=== PATIENT | female | born 1975 | race Caucasian/White ===

== ENCOUNTER 2019-08-05 15:08 | Inpatient (IN) | payer OTHER ==
[2019-08-05] MEDS ORDERED: IBUPROFEN 600 MG TAB PO STA (15:50)
[2019-08-05] MEDS ORDERED: ACETAMINOPHEN TAB 500 MG TAB PO STA (15:50)
[2019-08-05] MEDS ORDERED: NALOXONE 0.4 MG/ML 1 ML VIAL IV STA (15:52)
[2019-08-05] MEDS ORDERED: ONDANSETRON 4 MG/2 ML VIAL IVP STA (15:53)
[2019-08-05] MEDS ORDERED: IPRATROPIUM-ALBUTEROL 3 ML NEB INHALATION STA (16:04)
--- NOTE | 2019-08-05 16:24 | ED ---
General Adult HPI - General Source: patient, RN notes reviewed, old records reviewed Mode of arrival: EMS Limitations: no limitations <Maame Forrester - Last Filed: 08/05/19 17:49> <Adryan Purdy - Last Filed: 08/05/19 18:54> - General Chief complaint: Overdose Stated complaint: Drug abuse Time Seen by Provider: 08/05/19 15:34 - History of Present Illness Initial comments: Patient is a 43-year-old female with a history of heroin abuse, recently took 4 5 mg Klonopin. She presents today emergency department with lethargy. She also states she's been feeling unwell complaining of a fever and cough, congestion. Patient states that she was planning on going to [facility] for drug rehab. Patient has had no recent Motrin or Tylenol. She reports that she did not take the Klonopin for suicidal attempt. Patient reports no recent motrin or tylenol. Patient has no history of sick contacts. (Maame Forrester) - Related Data Previous Rx's Medication Instructions Recorded Dicyclomine [Bentyl] 20 mg PO QID #24 tablet 10/13/13 Allergies Allergy/AdvReac Type Severity Reaction Status Date / Time Penicillins Allergy Rash/Hives Verified 08/05/19 15:27 prochlorperazine edisylate Allergy Anaphylaxis Verified 08/05/19 15:27 [From Compazine] prochlorperazine maleate Allergy Anaphylaxis Verified 08/05/19 15:27 [From Compazine] Sulfa (Sulfonamide Allergy Dyspnea Verified 08/05/19 15:27 Antibiotics) Review of Systems ROS Other: All systems not noted in ROS Statement are negative. <Maame Forrester - Last Filed: 08/05/19 17:49> ROS Other: All systems not noted in ROS Statement are negative. <Adryan Purdy - Last Filed: 08/05/19 18:54> ROS Statement: Those systems with pertinent positive or pertinent negative responses have been documented in the HPI. Past Medical History Past Medical History: Asthma, Seizure Disorder History of Any Multi-Drug Resistant Organisms: None Reported Past Surgical History: Section, Tubal Ligation Additional Past Surgical History / Comment(s): PERF. ULCER REPAIR Past Psychological History: No Psychological Hx Reported Smoking Status: Current every day smoker Past Alcohol Use History: None Reported Past Drug Use History: Heroin, Prescription Drug Abuse <UsamaMaame - Last Filed: 08/05/19 17:49> General Exam Limitations: no limitations General appearance: alert, in no apparent distress Head exam: Present: atraumatic, normocephalic, normal inspection Eye exam: Present: normal appearance, PERRL, EOMI. Absent: scleral icterus, conjunctival injection, periorbital swelling ENT exam: Present: normal exam, mucous membranes moist Neck exam: Present: normal inspection. Absent: tenderness, meningismus, lymphadenopathy Respiratory exam: Present: wheezes, rhonchi (scar mid abdomen). Absent: normal lung sounds bilaterally, respiratory distress, rales, stridor Cardiovascular Exam: Present: regular rate, normal rhythm, normal heart sounds. Absent: systolic murmur, diastolic murmur, rubs, gallop, clicks GI/Abdominal exam: Present: soft Extremities exam: Present: normal inspection, full ROM, normal capillary refill. Absent: tenderness, pedal edema, joint swelling, calf tenderness Back exam: Present: normal inspection Neurological exam: Present: alert, oriented X3, CN II-XII intact Psychiatric exam: Present: normal affect, normal mood Skin exam: Present: warm, dry, intact, normal color. Absent: rash <Maame Forrester - Last Filed: 08/05/19 17:49> - General Exam Comments Initial Comments: Drowsy and lethargic 43 year old female, no distress. (Maame Forrester) Course Vital Signs 08/05/19 08/05/19 08/05/19 15:20 17:06 17:22 Temperature 101.5 F H Pulse Rate 127 H 126 H Respiratory 16 16 Rate Blood Pressure 107/79 O2 Sat by Pulse 88 L Oximetry 08/05/19 08/05/19 17:31 18:28 Temperature Pulse Rate 122 H 122 H Respiratory 18 Rate Blood Pressure 145/94 O2 Sat by Pulse 95 Oximetry Medical Decision Making <Maame Forrester - Last Filed: 08/05/19 17:49> - Lab Data Result diagrams: 08/05/19 16:40 08/05/19 16:40 <Adryan Purdy - Last Filed: 08/05/19 18:54> - Medical Decision Making 43-year-old female presents emergency department today after IV heroin abuse and taking 20 mg of Klonopin presents with lethargy. She is also noted to have a fever. She reports that she's been coughing, and feeling generally unwell. She is a fever 101. On exam she has wheezing and rhonchi noted bilaterally. She is given DuoNeb treatment. Sepsis workup attempted. Patient has poor vascular access due to history of drug abuse. Blood cultures and labs were obtained. She is given given IV Narcan to help have the Patient become more alert. She B did become more alert at this time. She then removed her IV site. Attempts to establish ultrasound guard IV site by Dr. Purdy. At this time patient's case will be transferred to Dr. Dickey at 5:52 PM. (Maame Forrester) Patient presented with overdose on Klonopin history of heroin abuse. Patient presenting with cough and wheezing and fever. Patient has interstitial pneumonia, atypical pneumonia. Mild leukocytosis at 11, she does have a lactic 3.2 was treated with IV hydration. She is initiated on IV antibiotics and admitted for treatment of pneumonia. Case is discussed with Vandana alvarez for Dr. Calderon. (Adryan Purdy) - Lab Data Lab Results 08/05/19 08/05/19 08/05/19 Range/Units 16:19 16:40 16:40 WBC 11.0 H (3.8-10.6) k/uL RBC 4.58 (3.80-5.40) m/uL Hgb 11.8 (11.4-16.0) gm/dL Hct 38.1 (34.0-46.0) % MCV 83.0 (80.0-100.0) fL MCH 25.7 (25.0-35.0) pg MCHC 30.9 L (31.0-37.0) g/dL RDW 16.7 H (11.5-15.5) % Plt Count 193 (150-450) k/uL Neutrophils % 85 % Lymphocytes % 10 % Monocytes % 4 % Eosinophils % 0 % Basophils % 0 % Neutrophils # 9.4 H (1.3-7.7) k/uL Lymphocytes # 1.1 (1.0-4.8) k/uL Monocytes # 0.4 (0-1.0) k/uL Eosinophils # 0.0 (0-0.7) k/uL Basophils # 0.0 (0-0.2) k/uL Hypochromasia Slight Anisocytosis Slight PT 10.6 (9.0-12.0) sec INR 1.0 (<1.2) APTT 24.0 (22.0-30.0) sec Sodium (137-145) mmol/L Potassium (3.5-5.1) mmol/L Chloride (98-107) mmol/L Carbon Dioxide (22-30) mmol/L Anion Gap mmol/L BUN (7-17) mg/dL Creatinine (0.52-1.04) mg/dL Est GFR (CKD-EPI)AfAm (>60 ml/min/1.73 sqM) Est GFR (CKD-EPI)NonAf (>60 ml/min/1.73 sqM) Glucose (74-99) mg/dL Plasma Lactic Acid Nagi (0.7-2.0) mmol/L Calcium (8.4-10.2) mg/dL Total Bilirubin (0.2-1.3) mg/dL AST (14-36) U/L ALT (4-34) U/L Alkaline Phosphatase (38-126) U/L Troponin I (0.000-0.034) ng/mL NT-Pro-B Natriuret Pep pg/mL Total Protein (6.3-8.2) g/dL Albumin (3.5-5.0) g/dL Influenza Type A RNA Not Detected (Not Detectd) Influenza Type B (PCR) Not Detected (Not Detectd) 08/05/19 08/05/19 08/05/19 Range/Units 16:40 16:40 16:40 WBC (3.8-10.6) k/uL RBC (3.80-5.40) m/uL Hgb (11.4-16.0) gm/dL Hct (34.0-46.0) % MCV (80.0-100.0) fL MCH (25.0-35.0) pg MCHC (31.0-37.0) g/dL RDW (11.5-15.5) % Plt Count (150-450) k/uL Neutrophils % % Lymphocytes % % Monocytes % % Eosinophils % % Basophils % % Neutrophils # (1.3-7.7) k/uL Lymphocytes # (1.0-4.8) k/uL Monocytes # (0-1.0) k/uL Eosinophils # (0-0.7) k/uL Basophils # (0-0.2) k/uL Hypochromasia Anisocytosis PT (9.0-12.0) sec INR (<1.2) APTT (22.0-30.0) sec Sodium 137 (137-145) mmol/L Potassium 4.4 (3.5-5.1) mmol/L Chloride 98 (98-107) mmol/L Carbon Dioxide 30 (22-30) mmol/L Anion Gap 9 mmol/L BUN 11 (7-17) mg/dL Creatinine 0.87 (0.52-1.04) mg/dL Est GFR (CKD-EPI)AfAm >90 (>60 ml/min/1.73 sqM) Est GFR (CKD-EPI)NonAf 83 (>60 ml/min/1.73 sqM) Glucose 88 (74-99) mg/dL Plasma Lactic Acid Nagi 3.2 H* (0.7-2.0) mmol/L Calcium 8.8 (8.4-10.2) mg/dL Total Bilirubin 0.8 (0.2-1.3) mg/dL AST 35 (14-36) U/L ALT 19 (4-34) U/L Alkaline Phosphatase 98 (38-126) U/L Troponin I <0.012 (0.000-0.034) ng/mL NT-Pro-B Natriuret Pep pg/mL Total Protein 7.4 (6.3-8.2) g/dL Albumin 4.0 (3.5-5.0) g/dL Influenza Type A RNA (Not Detectd) Influenza Type B (PCR) (Not Detectd) 08/05/19 Range/Units 16:40 WBC (3.8-10.6) k/uL RBC (3.80-5.40) m/uL Hgb (11.4-16.0) gm/dL Hct (34.0-46.0) % MCV (80.0-100.0) fL MCH (25.0-35.0) pg MCHC (31.0-37.0) g/dL RDW (11.5-15.5) % Plt Count (150-450) k/uL Neutrophils % % Lymphocytes % % Monocytes % % Eosinophils % % Basophils % % Neutrophils # (1.3-7.7) k/uL Lymphocytes # (1.0-4.8) k/uL Monocytes # (0-1.0) k/uL Eosinophils # (0-0.7) k/uL Basophils # (0-0.2) k/uL Hypochromasia Anisocytosis PT (9.0-12.0) sec INR (<1.2) APTT (22.0-30.0) sec Sodium (137-145) mmol/L Potassium (3.5-5.1) mmol/L Chloride (98-107) mmol/L Carbon Dioxide (22-30) mmol/L Anion Gap mmol/L BUN (7-17) mg/dL Creatinine (0.52-1.04) mg/dL Est GFR (CKD-EPI)AfAm (>60 ml/min/1.73 sqM) Est GFR (CKD-EPI)NonAf (>60 ml/min/1.73 sqM) Glucose (74-99) mg/dL Plasma Lactic Acid Nagi (0.7-2.0) mmol/L Calcium (8.4-10.2) mg/dL Total Bilirubin (0.2-1.3) mg/dL AST (14-36) U/L ALT (4-34) U/L Alkaline Phosphatase (38-126) U/L Troponin I (0.000-0.034) ng/mL NT-Pro-B Natriuret Pep 531 pg/mL Total Protein (6.3-8.2) g/dL Albumin (3.5-5.0) g/dL Influenza Type A RNA (Not Detectd) Influenza Type B (PCR) (Not Detectd) 08/05/19 17:25 EKG shows sinus tachycardia otherwise normal EKG. Ventricular rate of 1 27 bpm. Verbal 154 ms. QS duration is 92 ms. QT QTc is 300/436 ms. (Maame Forrester) Critical Care Time Critical Care Time: Yes Total Critical Care Time: 35 <Adryan Purdy - Last Filed: 08/05/19 18:54> Disposition <Maame Forrester - Last Filed: 08/05/19 17:49> Is patient prescribed a controlled substance at d/c from ED?: No Decision to Admit Reason: Admit from EC Decision Date: 08/05/19 Decision Time: 18:54 <Adryan Purdy - Last Filed: 08/05/19 18:54> Clinical Impression: Accidental drug overdose, Pneumonia Disposition: ADMITTED IP TO THIS HOSP Condition: Stable Referrals: Nonstaff,Physician [Primary Care Provider] - 1-2 days
[2019-08-05] MEDS: SODIUM CHLORIDE 0.9% 500 ML 500 ML IV SCH ×2 (16:56→18:44)
[2019-08-05] MEDS ORDERED: diphenhydrAMINE 50 MG/ML 1 ML VIAL IVP STA (17:08)
[2019-08-05 17:58] LABS: Anisocytosis Slight; Basophils % (A) 0 %; Eosinophils % (A) 0 %; HCT 38.1 % (34.0-46.0); HGB 11.8 gm/dL (11.4-16.0); Hypochromasia Slight; Lymphocytes # (A) 1.1 k/uL (1.0-4.8); Lymphocytes % (A) 10 %; MCH 25.7 pg (25.0-35.0); MCHC 30.9 g/dL (31.0-37.0); Mean Platelet Volume 7.5; Monocytes # (A) 0.4 k/uL (0-1.0); Monocytes % (A) 4 %; Neutrophils # (A) 9.4 k/uL (1.3-7.7); Neutrophils % (A) 85 %; Platelet Count 193 k/uL (150-450); RBC 4.58 m/uL (3.80-5.40); RDW 16.7 % (11.5-15.5)
[2019-08-05] MEDS ORDERED: VANCOMYCIN IV PER PHARMACY 1 EACH MISC MISCELLANE PRN (18:03)
[2019-08-05] MEDS ORDERED: VANCOMYCIN 1,500 MG in SODIUM CHLORIDE 0.9% 250 ML IVPB STA (18:05)
[2019-08-05 18:06] LABS: Prothrombin Time 10.6 sec (9.0-12.0)
[2019-08-05 18:12] LABS: ALT 19 U/L (4-34); AST 35 U/L (14-36); African American GFR (CKD) >90 (>60 ml/min/1.73 sqM); Alkaline Phosphatase 98 U/L (38-126); Anion Gap 9 mmol/L; Blood Urea Nitrogen 11 mg/dL (7-17); Calcium 8.8 mg/dL (8.4-10.2); Carbon Dioxide 30 mmol/L (22-30); Chloride 98 mmol/L (98-107); Glucose 88 mg/dL (74-99); Non-African American GFR(CKD) 83 (>60 ml/min/1.73 sqM); Potassium 4.4 mmol/L (3.5-5.1); Sodium 137 mmol/L (137-145); Total Bilirubin 0.8 mg/dL (0.2-1.3); Total Protein 7.4 g/dL (6.3-8.2)
--- NOTE | 2019-08-05 18:28 | XR ---
EXAMINATION TYPE: XR chest 2V DATE OF EXAM: 08/05/2019 COMPARISON: NONE TECHNIQUE: PA and lateral views submitted. HISTORY: Fever FINDINGS: There are diffuse bilateral infiltrates throughout the lungs. No sizable pleural effusion. Degenerati ve change the spine. No pneumothorax. Biapical pleural thickening. Mild hypertrophic change of the ve rtebral column. Mild prominence of the right hilum. Vague nodularity right upper lobe likely related to the right sided chest lead. Follow-up to resolution recommended to exclude underlying neoplastic p rocess. IMPRESSION: 1. Diffuse bilateral predominantly interstitial infiltrates. Differential diagnosis would include aty pical pneumonia or interstitial viral pneumonia. Given the lack of pleural fluid infectious etiology favored over CHF.
[2019-08-05] MEDS ORDERED: AZITHROMYCIN 500 MG in SODIUM CHLORIDE 0.9% 250 ML IVPB STA (18:34)
[2019-08-05] MEDS: SODIUM CHLORIDE 0.9% 1,000 ML IV SCH ×2 (18:39→22:06)
[2019-08-05] MEDS: IPRATROPIUM-ALBUTEROL 3 ML NEB INHALATION SCH (20:23)
[2019-08-05] MEDS: IMIPRAMINE 25 MG TAB PO SCH (22:10)
[2019-08-05] MEDS: FLUoxetine HCL 20 MG CAP PO SCH (22:11)
[2019-08-05] MEDS: Asenapine Maleate [Saphris] 10 MG SUBLINGUAL SCH (22:12)
[2019-08-05 23:12] LABS: Appearance,Urine Clear (Clear); Bacteria,Urine Rare /hpf; Bilirubin,Urine Negative (Negative); Blood,Urine Negative (Negative); Color,Urine Light Yellow; Glucose,Urine (UA) Negative (Negative); Ketones,Urine Negative (Negative); Leukocyte Esterase,Urine Negative (Negative); Mucus,Urine Rare /hpf; Nitrite,Urine Positive (Negative); Protein,Urine Negative (Negative); RBC,Urine 1 /hpf (0-5); Specific Gravity,Urine 1.009 (1.001-1.035); Squamous Epithelial Cell,Urine 1 /hpf (0-4); Urobilinogen,Urine <2.0 mg/dL (<2.0); WBC,Urine 2 /hpf (0-5)
[2019-08-05 23:20] LABS: Amphetamine Screen,Urine Not Detected (NotDetected); Barbiturate Screen,Urine Not Detected (NotDetected); Benzodiazepines Screen,Urine Not Detected (NotDetected); Cocaine Screen,Urine Not Detected (NotDetected); Methadone Screen, Urine Detected (NotDetected); Opiate Screen,Urine Not Detected (NotDetected); Oxycodone Screen, Urine Not Detected (NotDetected); Phencyclidine Screen,Urine Not Detected (NotDetected); Tricyclic Antidepressant,Urine Detected (NotDetected); Urn Cannabinoid Scrn Detected (NotDetected)
[2019-08-05] MEDS: IPRATROPIUM-ALBUTEROL 3 ML NEB INHALATION PRN (23:35)
[2019-08-06] MEDS ORDERED: VANCOMYCIN 1,750 MG in SODIUM CHLORIDE 0.9% 500 ML 500 ML IVPB SCH (06:00)
[2019-08-06] MEDS: IPRATROPIUM-ALBUTEROL 3 ML NEB INHALATION SCH ×4 (08:28→19:42)
[2019-08-06] MEDS: predniSONE 20 MG TAB PO SCH (10:01)
[2019-08-06] MEDS: IPRATROPIUM-ALBUTEROL 3 ML NEB INHALATION PRN (10:20)
[2019-08-06] MEDS ORDERED: BISMUTH SUBSALICYLATE 4,192 MG/240 ML BOTTLE PO PRN (13:22)
[2019-08-06] MEDS ORDERED: LEVOFLOXACIN 750MG-D5W PMX 750 MG in DEXTROSE/WATER 1 150ML.BAG IVPB SCH (14:00)
[2019-08-06] MEDS: PANTOPRAZOLE 40 MG/10 ML VIAL IVP SCH (14:48)
[2019-08-06] MEDS: METHADONE 10 MG TAB PO SCH (14:51)
--- NOTE | 2019-08-06 15:23 | P.HPIM ---
History of Present Illness 43-year-old angi female is admitted for possible atypical pneumonia. Patient is a pleasant 51-year-old femalewas sent in from [place] as she took too many of her Klonopin. Patient the admits to taking about 6 pills of 0.5 mg of Klonopin that her leftover she is going to rehabilitation. Patient was bit lethargic in ER. Patient denied any loss of consciousness. In ER patient is found to be febrile and patient was comparing of cough without any sputum production for last couple days condition and fever for couple days as well and significant shortness of breath. Patient is presently on 3 L of oxygen no wheezing on exam and the saturating at only90%. Patient was isolated COVID 19 testing was ordered.patient has a diffuse infiltrate consistent with atypical pneumonia patient doesn't have any JVD BNP is only 54. Patient doesn't have any pedal edema. Patient was started on vancomycin and ceftriaxone and azithromycin all of these and medics were discontinued patient will be started on IV Vanco IV levofloxacin, serum mycoplasma IgM antibody along with urinary Legionella antigen was ordered. Patient does smoke does have history of hepatitis C from IV drug use. Patient is little bit sweaty does appear to have some withdrawals from opiates. Patient does use 140 mg of methadone for opiate withdrawal. Review of Systems REVIEW OF SYSTEMS: CONSTITUTIONAL: No fever, no malaise, no fatigue. HEENT: No recent visual problems or hearing problems. Denied any sore throat. CARDIOVASCULAR: No chest pain, orthopnea, PND, no palpitations, no syncope. PULMONARY: no hemoptysis. GASTROINTESTINAL: No diarrhea, no nausea, no vomiting, no abdominal pain. NEUROLOGICAL: No headaches, no weakness, no numbness. HEMATOLOGICAL: Denies any bleeding or petechiae. GENITOURINARY: Denies any burning micturition, frequency, or urgency. MUSCULOSKELETAL/RHEUMATOLOGICAL: Denies any joint pain, swelling, or any muscle pain. ENDOCRINE: Denies any polyuria or polydipsia. The rest of the 14-point review of systems is negative. Past Medical History Past Medical History: Asthma, Seizure Disorder History of Any Multi-Drug Resistant Organisms: None Reported Past Surgical History: Section, Tubal Ligation Additional Past Surgical History / Comment(s): PERF. ULCER REPAIR Past Psychological History: Anxiety Smoking Status: Current every day smoker Past Alcohol Use History: None Reported Additional Past Alcohol Use History / Comment(s): pt states she started vaping a month and a half ago and does it all day long. last time used heroin 3 days ago, and usually does it once a week. pt states she smokes weed "once in a while". pt doesn't recall how many pills she took today, but does know it was more than the ordered dose Past Drug Use History: Heroin, Marijuana, Prescription Drug Abuse Medications and Allergies Home Medications Medication Instructions Recorded Confirmed Type Asenapine Maleate [Saphris] 10 mg SL HS 08/05/19 08/05/19 History Bismuth Subsalicylate 524 mg PO QID PRN 08/05/19 08/05/19 History [Pepto-Bismol] FLUoxetine HCL 40 mg PO HS 08/05/19 08/05/19 History Ibuprofen/Diphenhydramine Cit 1 tab PO HS PRN 08/05/19 08/05/19 History [Ibuprofen Pm Caplet] Imipramine [Tofranil] 25 - 50 mg PO HS 08/05/19 08/05/19 History Naproxen Sodium [Aleve] 440 mg PO BID PRN 08/05/19 08/05/19 History cloNIDine HCL [Catapres] 0.1 mg PO BID 08/05/19 08/05/19 History clonazePAM [KlonoPIN] 0.5 mg PO BID 08/05/19 08/05/19 History traZODone HCL 100 mg PO HS 08/05/19 08/05/19 History Allergies Allergy/AdvReac Type Severity Reaction Status Date / Time Penicillins Allergy Rash/Hives Verified 08/05/19 22:40 prochlorperazine edisylate Allergy Anaphylaxis Verified 08/05/19 22:40 [From Compazine] prochlorperazine maleate Allergy Anaphylaxis Verified 08/05/19 22:40 [From Compazine] Sulfa (Sulfonamide Allergy Dyspnea Verified 08/05/19 22:40 Antibiotics) Physical Exam Vitals: Vital Signs Temp Pulse Pulse Resp BP BP Pulse Ox 08/06/19 11:54 110 H 08/06/19 11:35 108 H 08/06/19 10:30 108 H 08/06/19 10:20 100 08/06/19 08:00 98.3 F 108 H 20 114/75 90 L 08/06/19 03:09 101 H 18 08/06/19 03:08 98.0 F 101 H 18 116/56 96 08/05/19 23:43 101 H 14 08/05/19 23:35 103 H 14 08/05/19 23:32 115 H 16 08/05/19 23:31 98.1 F 115 H 16 111/57 96 08/05/19 20:44 98.1 F 110 H 18 106/53 92 L 08/05/19 19:57 108 H 18 97/52 96 08/05/19 19:20 100.1 F H 118 H 18 96/56 95 08/05/19 18:28 122 H 18 145/94 95 08/05/19 17:31 122 H 08/05/19 17:22 126 H 08/05/19 17:06 16 08/05/19 15:20 101.5 F H 127 H 16 107/79 88 L Intake and Output 08/06/19 08/06/19 08/06/19 06:59 14:59 22:59 Intake Total 1000 360 Output Total 200 Balance 800 360 Intake: Intake, IV Titration 600 Amount Sodium Chloride 0.9% 1, 600 000 ml @ 75 mls/hr IV . [id number] [facility] Rx#:[id number] Oral 400 360 Output: Urine 200 Other: Voiding Method Toilet # Voids 2 1 Weight 99.1 kg PHYSICAL EXAMINATION: GENERAL: The patient is alert and oriented x3, not in any acute distress. Well developed, well nourished. HEENT: Pupils are round and equally reacting to light. EOMI. No scleral icterus. No conjunctival pallor. Normocephalic, atraumatic. No pharyngeal erythema. No thyromegaly. CARDIOVASCULAR: S1 and S2 present. No murmurs, rubs, or gallops. tachycardic PULMONARY: Chest is clear to auscultation, no wheezing or crackles. ABDOMEN: Soft, nontender, nondistended, normoactive bowel sounds. No palpable organomegaly. MUSCULOSKELETAL: No joint swelling or deformity. EXTREMITIES: No cyanosis, clubbing, or pedal edema. NEUROLOGICAL: Gross neurological examination did not reveal any focal deficits. SKIN: No rashes. Results CBC & Chem 7: 08/05/19 16:40 08/05/19 16:40 Labs: Abnormal Lab Results - Last 24 Hours (Table) 08/05/19 08/05/19 08/05/19 Range/Units 16:40 16:40 22:58 WBC 11.0 H (3.8-10.6) k/uL MCHC 30.9 L (31.0-37.0) g/dL RDW 16.7 H (11.5-15.5) % Neutrophils # 9.4 H (1.3-7.7) k/uL Plasma Lactic Acid Nagi 3.2 H* (0.7-2.0) mmol/L Urine Nitrite Positive H (Negative) Urine Bacteria Rare H (None) /hpf Urine Mucus Rare H (None) /hpf Urine Methadone Screen (NotDetected) U Tricyclic Antidepress (NotDetected) U Marijuana (THC) Screen (NotDetected) 08/05/19 Range/Units 22:58 WBC (3.8-10.6) k/uL MCHC (31.0-37.0) g/dL RDW (11.5-15.5) % Neutrophils # (1.3-7.7) k/uL Plasma Lactic Acid Nagi (0.7-2.0) mmol/L Urine Nitrite (Negative) Urine Bacteria (None) /hpf Urine Mucus (None) /hpf Urine Methadone Screen Detected H (NotDetected) U Tricyclic Antidepress Detected H (NotDetected) U Marijuana (THC) Screen Detected H (NotDetected) Thrombosis Risk Factor Assmnt - Choose All That Apply Any of the Below Risk Factors Present?: Yes Each Factor Represents 1 point: Age 41-60 years Other Risk Factors: No Other congenital or acquired thrombophilia - If yes, enter type in comment: No Thrombosis Risk Factor Assessment Total Risk Factor Score: 1 Thrombosis Risk Factor Assessment Level: Low Risk Assessment and Plan Plan: -shortness of breath cough and diffuse infiltrate on chest x-ray possibility of atypical pneumonia cannot be ruled out, no coronary was testing was ordered as it cannot be ruled out influenza was ruled out. As mentioned above tests. Mycoplasma and Legionella were ordered patient will be started on levofloxacin tested the other antibiotics will be discontinued sputum cultures and blood cultures will be obtained as well. Patient although is not coughing up any phlegm.possibly of acute lung injury cannot be ruled out possibility of CHF is extremely low. Discussed with the spa director and will obtain CAT scan of the chest without contrast to better characterize diffuse pulmonary infiltrates -hepatitis C presently not on any medications -Marijuana use: Counseling was provided -depression and other psychiatric issues patient was resumed on her home medications for these -gastroesophageal reflux disease -DVT prophylaxis with subcutaneous heparin, GI prophylaxis with Protonix
--- NOTE | 2019-08-06 16:37 | CT ---
EXAMINATION TYPE: CT chest wo con DATE OF EXAM: 08/06/2019 COMPARISON: NONE HISTORY: Pneumonia, COVID isolation CT DLP: 480.1 mGycm. Automated Exposure Control for Dose Reduction was Utilized. TECHNIQUE: CT scan of the thorax is performed without IV contrast. FINDINGS: LUNGS: Right-sided predominant and basilar predominant reticular nodular opacities are also centrally predominant are seen throughout both lungs. Innumerable subcentimeter pulmonary nodules throughout. Scattered right upper lobe predominant areas of round glass opacity and bibasilar peribronchial thick ening seen. More nodular consolidation at the left lung base is contiguous with the pleural surface a nd likely atelectasis. Trace bilateral pleural effusions and right basilar atelectasis are also seen. No cavitary masses are identified. No pneumothorax. MEDIASTINUM: Lack of IV contrast is noted to limit evaluation for mediastinal and especially hilar ad enopathy. Prominent right paratracheal lymph node measures 9 mm in short axis on image 15. Prominent subcarinal lymph node measures 1.3 cm in short axis. No cardiomegaly or pericardial effusion is seen . OTHER: Very small hiatal hernia. The partially imaged spleen is at least upper limits of normal in si ze. IMPRESSION: Findings favoring diffuse interstitial pneumonia are seen with diffuse reticular nodular opacities, innumerable subcentimeter pulmonary nodules, and right upper lung groundglass opacities. T race pleural effusions and bibasilar atelectasis are also seen. Few borderline enlarged mediastinal l ymph nodes.
[2019-08-06] MEDS: HEPARIN SODIUM,PORCINE 5,000 UNIT/ML 1 ML VIAL SQ SCH ×2 (18:24→22:32)
[2019-08-06] MEDS: FLUoxetine HCL 20 MG CAP PO SCH (20:27)
[2019-08-06] MEDS: Asenapine Maleate [Saphris] 10 MG SUBLINGUAL SCH (20:27)
[2019-08-06] MEDS: LEVOFLOXACIN 750 MG TAB PO SCH (20:27)
[2019-08-06] MEDS: IMIPRAMINE 25 MG TAB PO SCH (20:28)
[2019-08-06] MEDS: traZODone HCL 100 MG TAB PO SCH (20:28)
[2019-08-06] MEDS ORDERED: AZITHROMYCIN 500 MG in SODIUM CHLORIDE 0.9% 250 ML IVPB SCH (21:00)
[2019-08-07 06:21] LABS: African American GFR (CKD) >90 (>60 ml/min/1.73 sqM); Non-African American GFR(CKD) >90 (>60 ml/min/1.73 sqM)
[2019-08-07] MEDS: IPRATROPIUM-ALBUTEROL 3 ML NEB INHALATION SCH ×4 (08:11→19:53)
--- NOTE | 2019-08-07 10:34 | XR ---
EXAMINATION TYPE: XR chest 1V portable DATE OF EXAM: 08/07/2019 COMPARISON: 08/05/2019 HISTORY: Shortness of breath TECHNIQUE: Single frontal view of the chest is obtained. FINDINGS: Coarsened interstitium. Findings are improved from prior exam. Heart size normal. No pleur al effusion or pneumothorax. IMPRESSION: Correlate for interstitial pneumonitis. Finding appears improved from the prior exam.
--- NOTE | 2019-08-07 10:35 | P.PN ---
Subjective Patient is being treated for pneumonia patient probably has atypical pneumonia, nursing staff was unable to peripheral line patient was switched to oral levofloxacin. COVID 19 testing was ordered for possibility of which is low and patient will be on isolation for this. Her respiratory status did improve significantly patient has mild wheezing today Constitutional: Denied any fatigue denied any fever. Cardio vascular: denied any chest pain, palpitations Gastrointestinal denied any nausea vomiting Pulmonary: As mentioned in HPI Neurologic denied any new focal deficits All inpatient medications were reviewed and appropriate changes in these medications as dictated in the interval history and assessment and plan. Objective - Vital Signs Vital signs: Vital Signs Temp 97.6 F 08/07/19 03:42 Pulse 108 H 08/07/19 08:36 Resp 18 08/07/19 03:43 BP 131/82 08/07/19 03:42 Pulse Ox 96 08/07/19 03:42 Intake & Output 08/06/19 08/07/19 08/07/19 18:59 06:59 18:59 Intake Total 480 900 Output Total 1200 Balance 480 -300 Weight 98.7 kg Intake: Oral 480 900 Output: Urine 1200 Other: Voiding Method Toilet Toilet # Voids 1 1 - Exam PHYSICAL EXAMINATION: GENERAL: The patient is alert and oriented x3, not in any acute distress. Obese HEENT: Pupils are round and equally reacting to light. EOMI. No scleral icterus. No conjunctival pallor. Normocephalic, atraumatic. No pharyngeal erythema. No thyromegaly. CARDIOVASCULAR: S1 and S2 present. No murmurs, rubs, or gallops. PULMONARY: Expiratory wheezing on exam ABDOMEN: Soft, nontender, nondistended, normoactive bowel sounds. No palpable organomegaly. MUSCULOSKELETAL: No joint swelling or deformity. EXTREMITIES: No cyanosis, clubbing, or pedal edema. NEUROLOGICAL: Gross neurological examination did not reveal any focal deficits. SKIN: No rashes. - Labs CBC & Chem 7: 08/05/19 16:40 08/07/19 05:50 Labs: Microbiology - Last 24 Hours (Table) 08/05/19 16:40 Blood Culture - Preliminary Blood No Growth after 24 hours Assessment and Plan Plan: -Probable atypical pneumonia COVID testin is pending, patient is on levofloxacin oral CAT scan was obtained is consistent for interstitial pneumonia with diffuse reticulonodular opacities there is some pulmonary nodules. Mycoplasma and Legionella were ordered patient will be started on levofloxacin tested the other antibiotics will be discontinued sputum cultures and blood cultures will be obtained as well. P -hepatitis C presently not on any medications -History of opiate abuse patient is on methadone presently -Overdose on barbiturates on admission patient only toxic spills clinically doing well at this time -COPD exacerbation: Patient is on oral steroids which will be continued -Marijuana use: Counseling was provided -depression and other psychiatric issues patient was resumed on her home medications for these -gastroesophageal reflux disease -DVT prophylaxis with subcutaneous heparin, GI prophylaxis with Protonix
[2019-08-07] MEDS: predniSONE 20 MG TAB PO SCH (10:42)
[2019-08-07] MEDS: METHADONE 10 MG TAB PO SCH (10:42)
[2019-08-07] MEDS: PANTOPRAZOLE 40 MG/10 ML VIAL IVP SCH (10:43)
[2019-08-07] MEDS: HEPARIN SODIUM,PORCINE 5,000 UNIT/ML 1 ML VIAL SQ SCH ×3 (10:43→22:59)
--- NOTE | 2019-08-07 11:57 | P.CNPUL ---
History of Present Illness Consult date: 08/07/19 Reason for consult: pneumonia History of present illness: A 43-year-old female patient, with history of IVDA, who got transferred from [place] as the patient [facility] for anxiety. She apparently took a total of 6 pills of Klonopin which were at 0.5 mg as she was undergoing her amputation. The patient was found to be lethargic and she was having some increased shortness of breath and cough and she was also found to be febrile in the emergency department. She was not producing much of sputum. She had some chest discomfort along with congestion. She was placed on 2-3 L per minute nasal cannula. Chest exit showed diffuse but the pulmonary infiltrates. A CAT scan of the chest was done that showed diffuse interstitial pneumonia with diffuse reticular nodular opacities and several subcentimeter pulmonary nodules and upper lobe groundglass changes. Trace pleural effusions were also seen. Few borderline mediastinal lymph nodes were also seen. Patient was admitted. She was paced and up with isolation. She is also being investigated for Covid 19 as the patient had some fevers even prior to her coming to [place]. She is originally from [facility]. No travel history. Hasn't been in contact or exposure to anybody else we'll have the Covid 19 by this. In any rate, the patient was ventilated and the testing was done and results are still pending for now. Meanwhile, she was placed on Levaquin. The patient on oral Levaquin. She does not have any IV access. She is hemodynamically stable. On room air, the pulse ox 94-95% and a repeat chest x-ray that was done today showed improvement in the bilateral pulmonary infiltrates. Legionella urine antigen was sent and mycoplasma antibodies were sent and they're still pending. Influenza screen was negative. No leukocytosis. No ongoing fever for now. No body aches. No nausea. No vomiting. No diarrhea. No skin rashes for now. Review of Systems CONSTITUTIONAL: The patient was having fever. In fact, her admitting temperature was 1.5. That she has not spiked any temperature since then., no malaise, no fatigue. HEENT: No recent visual problems or hearing problems. Denied any sore throat. CARDIOVASCULAR: No chest pain, orthopnea, PND, no palpitations, no syncope. PULMONARY: no hemoptysis. , Rest of the symptoms are mentioned in the history of present illness. GASTROINTESTINAL: No diarrhea, no nausea, no vomiting, no abdominal pain. NEUROLOGICAL: No headaches, no weakness, no numbness. HEMATOLOGICAL: Denies any bleeding or petechiae. GENITOURINARY: Denies any burning micturition, frequency, or urgency. MUSCULOSKELETAL/RHEUMATOLOGICAL: Denies any joint pain, swelling, or any muscle pain. ENDOCRINE: Denies any polyuria or polydipsia. The rest of the 14-point review of systems is negative. Past Medical History Past Medical History: Asthma, Seizure Disorder Additional Past Medical History / Comment(s): History of IVDA. The patient goes to a methadone clinic. History of Any Multi-Drug Resistant Organisms: None Reported Past Surgical History: Section, Tubal Ligation Additional Past Surgical History / Comment(s): Large midabdominal scar related to a repair of a perforated peptic ulcer Past Psychological History: Anxiety Smoking Status: Current every day smoker Past Alcohol Use History: None Reported Additional Past Alcohol Use History / Comment(s): pt states she started vaping a month and a half ago and does it all day long. last time used heroin 3 days ago, and usually does it once a week. pt states she smokes weed "once in a while". pt doesn't recall how many pills she took today, but does know it was more than the ordered dose Past Drug Use History: Heroin, Marijuana, Prescription Drug Abuse Medications and Allergies Home Medications Medication Instructions Recorded Confirmed Type Asenapine Maleate [Saphris] 10 mg SL HS 08/05/19 08/05/19 History Bismuth Subsalicylate 524 mg PO QID PRN 08/05/19 08/05/19 History [Pepto-Bismol] FLUoxetine HCL 40 mg PO HS 08/05/19 08/05/19 History Ibuprofen/Diphenhydramine Cit 1 tab PO HS PRN 08/05/19 08/05/19 History [Ibuprofen Pm Caplet] Imipramine [Tofranil] 25 - 50 mg PO HS 08/05/19 08/05/19 History Naproxen Sodium [Aleve] 440 mg PO BID PRN 08/05/19 08/05/19 History cloNIDine HCL [Catapres] 0.1 mg PO BID 03/13/20 03/13/20 History clonazePAM [KlonoPIN] 0.5 mg PO BID 08/05/19 08/05/19 History traZODone HCL 100 mg PO HS 08/05/19 08/05/19 History Allergies Allergy/AdvReac Type Severity Reaction Status Date / Time Penicillins Allergy Rash/Hives Verified 08/05/19 22:40 prochlorperazine edisylate Allergy Anaphylaxis Verified 08/05/19 22:40 [From Compazine] prochlorperazine maleate Allergy Anaphylaxis Verified 08/05/19 22:40 [From Compazine] Sulfa (Sulfonamide Allergy Dyspnea Verified 08/05/19 22:40 Antibiotics) Physical Exam Vitals: Vital Signs Temp Pulse Pulse Resp BP Pulse Ox 08/07/19 11:29 100 08/07/19 11:19 100 08/07/19 09:00 97.8 F 84 18 137/90 97 08/07/19 08:36 108 H 08/07/19 08:13 108 H 08/07/19 03:43 87 18 08/07/19 03:42 97.6 F 87 18 131/82 96 08/06/19 23:14 88 18 08/06/19 23:12 97.8 F 88 18 112/66 95 08/06/19 20:00 97.8 F 110 H 88 18 123/80 99 08/06/19 19:46 111 H 18 08/06/19 16:00 97.5 F L 120 H 20 147/83 97 08/06/19 12:00 97.9 F 112 H 20 147/83 98 08/06/19 11:54 110 H Intake and Output 08/06/19 08/07/19 08/07/19 22:59 06:59 14:59 Intake Total 720 300 Output Total 900 300 Balance -180 0 Intake: Oral 720 300 Output: Urine 900 300 Other: Voiding Method Toilet Toilet # Voids 1 1 Weight 98.7 kg The patient appeared well nourished and normally developed. Vital signs as documented. Head exam is unremarkable. No scleral icterus or corneal arcus noted. Neck is without jugular venous distension, thyromegaly, or carotid bruits. Carotid upstrokes are brisk bilaterally. Lungs are clear to auscultation and percussion. Cardiac exam reveals the PMI to be normally sized and situated. Rhythm is regular. First and second heart sounds normal. No murmurs, rubs or gallops. Abdominal exam reveals normal bowel sounds, no masses, no organomegaly and no aortic enlargement. Extremities are nonedematous and both femoral and ped al pulses are normal.Examination of the skin revealed no evidence of significant rashes, suspicious appearing nevi or other concerning lesions. Neurologically the patient is awake and alert and there is no focal neurological deficits. Results - Laboratory Findings CBC and BMP: 08/05/19 16:40 08/07/19 05:50 PT/INR, D-dimer PT 10.6 sec (9.0-12.0) 08/05/19 16:40 INR 1.0 (<1.2) 08/05/19 16:40 Abnormal lab findings: Abnormal Labs 08/05/19 08/05/19 08/05/19 16:40 16:40 22:58 WBC 11.0 H MCHC 30.9 L RDW 16.7 H Neutrophils # 9.4 H Plasma Lactic Acid Nagi 3.2 H* Urine Nitrite Positive H Urine Bacteria Rare H Urine Mucus Rare H Urine Methadone Screen U Tricyclic Antidepress U Marijuana (THC) Screen 08/05/19 22:58 WBC MCHC RDW Neutrophils # Plasma Lactic Acid Nagi Urine Nitrite Urine Bacteria Urine Mucus Urine Methadone Screen Detected H U Tricyclic Antidepress Detected H U Marijuana (THC) Screen Detected H - Diagnostic Findings Chest x-ray: image reviewed CT scan - chest: image reviewed Assessment and Plan Plan: 1 bilateral interstitial pneumonia, walking pneumonia most likely due to an atypical microorganism. Doubt staphylococcal infection. Doubt Covid 19 infection/pneumonia. The patient has been swabbed and the appropriate testing has been sent and is also still pending for now. Meanwhile, she has been on oral antibiotics in the patient's follow-up chest is improved and there is been also improvement in the oxygenation on today's evaluation. No signs of any hemodynamic instability. 2 acute hypoxic respiratory failure, improved currently on room air oxygen 3 history of IVDA 4 chronic anxiety 5 chronic marijuana use/raping 6 hepatitis C 7 depression 8 acute fever, recovered Plan Clinically improving. Chest x-ray improving. Continue oral Levaquin. Follow- up chest x-ray shows improvement in pulmonary infiltrates. Continue updrafts. Awaiting Covid 19 testing results. Keep the patient on droplet isolation for now. We'll continue to follow.
[2019-08-07] MEDS ORDERED: LEVOFLOXACIN 750 MG TAB PO SCH (14:00)
[2019-08-07] MEDS: LEVOFLOXACIN 750 MG TAB PO SCH (18:19)
[2019-08-07] MEDS: cloNIDine HCL 0.1 MG TAB PO SCH (18:19)
[2019-08-07] MEDS: traZODone HCL 100 MG TAB PO SCH (20:35)
[2019-08-07] MEDS: FLUoxetine HCL 20 MG CAP PO SCH (20:35)
[2019-08-07] MEDS: IMIPRAMINE 25 MG TAB PO SCH (20:35)
[2019-08-07] MEDS: Asenapine Maleate [Saphris] 10 MG SUBLINGUAL SCH (20:35)
[2019-08-08 06:30] LABS: Anisocytosis Slight; HCT 36.3 % (34.0-46.0); HGB 11.5 gm/dL (11.4-16.0); MCHC 31.7 g/dL (31.0-37.0); Mean Platelet Volume 9.2; RBC 4.43 m/uL (3.80-5.40); RDW 16.8 % (11.5-15.5); WBC 6.6 k/uL (3.8-10.6)
[2019-08-08 06:39] LABS: African American GFR (CKD) >90 (>60 ml/min/1.73 sqM); Anion Gap 4 mmol/L; Blood Urea Nitrogen 13 mg/dL (7-17); Carbon Dioxide 34 mmol/L (22-30); Chloride 100 mmol/L (98-107); Glucose 73 mg/dL (74-99); Non-African American GFR(CKD) >90 (>60 ml/min/1.73 sqM); Potassium 4.2 mmol/L (3.5-5.1); Sodium 138 mmol/L (137-145)
[2019-08-08 07:25] LABS: Platelet Count 86 k/uL (150-450)
[2019-08-08] MEDS: IPRATROPIUM-ALBUTEROL 3 ML NEB INHALATION SCH ×4 (08:39→20:27)
[2019-08-08] MEDS: PANTOPRAZOLE 40 MG/10 ML VIAL IVP SCH (09:56)
[2019-08-08] MEDS: cloNIDine HCL 0.1 MG TAB PO SCH ×2 (09:58→20:21)
[2019-08-08] MEDS: HEPARIN SODIUM,PORCINE 5,000 UNIT/ML 1 ML VIAL SQ SCH ×2 (09:59→17:38)
[2019-08-08] MEDS: predniSONE 20 MG TAB PO SCH (09:59)
--- NOTE | 2019-08-08 10:10 | P.PN ---
Subjective Patient is being treated for pneumonia patient probably has atypical pneumonia, nursing staff was unable to peripheral line patient was switched to oral levofloxacin. COVID 19 testing was ordered for possibility of which is low and patient will be on isolation for this. Her respiratory status did improve significantly patient has mild wheezing today 08/08/2019 Ration has some expiratory wheezing on the feeling much better compared to admission. Patient is on TB isolation patient chest x-ray findings are not consistent with TB no further testing is necessary for TB patient has multiple nodular lesions which is only seen in the miliary tubercle doses which is extremely rare here. Constitutional: Denied any fatigue denied any fever. Cardio vascular: denied any chest pain, palpitations Gastrointestinal denied any nausea vomiting Pulmonary: As mentioned in HPI Neurologic denied any new focal deficits All inpatient medications were reviewed and appropriate changes in these medications as dictated in the interval history and assessment and plan. Objective - Vital Signs Vital signs: Vital Signs Temp 98.0 F 08/08/19 04:00 Pulse 79 08/08/19 08:51 Resp 18 08/08/19 04:00 BP 149/80 08/08/19 04:00 Pulse Ox 98 08/08/19 08:40 Intake & Output 08/07/19 08/08/19 08/08/19 18:59 06:59 18:59 Intake Total 1630 240 Output Total 1300 Balance 1630 -1300 240 Weight 98 kg Intake: Oral 1630 240 Output: Urine 1300 Other: Voiding Method Toilet # Voids 3 1 - Exam PHYSICAL EXAMINATION: GENERAL: The patient is alert and oriented x3, not in any acute distress. Obese HEENT: Pupils are round and equally reacting to light. EOMI. No scleral icterus. No conjunctival pallor. Normocephalic, atraumatic. No pharyngeal erythema. No thyromegaly. CARDIOVASCULAR: S1 and S2 present. No murmurs, rubs, or gallops. PULMONARY: Expiratory wheezing on exam ABDOMEN: Soft, nontender, nondistended, normoactive bowel sounds. No palpable organomegaly. MUSCULOSKELETAL: No joint swelling or deformity. EXTREMITIES: No cyanosis, clubbing, or pedal edema. NEUROLOGICAL: Gross neurological examination did not reveal any focal deficits. SKIN: No rashes. - Labs CBC & Chem 7: 08/08/19 06:03 08/08/19 06:03 Labs: Abnormal Lab Results - Last 24 Hours (Table) 08/08/19 08/08/19 Range/Units 06:03 06:03 RDW 16.8 H (11.5-15.5) % Plt Count 86 L D (150-450) k/uL Carbon Dioxide 34 H (22-30) mmol/L Glucose 73 L (74-99) mg/dL Microbiology - Last 24 Hours (Table) 08/05/19 16:40 Blood Culture - Preliminary Blood No Growth after 48 hours Assessment and Plan Plan: -Probable atypical pneumonia COVID testin is pending, patient is on levofloxacin oral CAT scan was obtained is consistent for interstitial pneumonia with diffuse reticulonodular opacities there is some pulmonary nodules. Mycoplasma and Legionella were ordered and results of which are still pending patient will be started on levofloxacin, sputum cultures are still pending. Patient will not need any tubercular isolation -hepatitis C presently not on any medications -History of opiate abuse patient is on methadone presently -Overdose on barbiturates on admission patient only toxic spills clinically doing well at this time -COPD exacerbation: Patient is on oral steroids which will be continued -Marijuana use: Counseling was provided -depression and other psychiatric issues patient was resumed on her home medications for these -gastroesophageal reflux disease -DVT prophylaxis with subcutaneous heparin, GI prophylaxis with Protonix
[2019-08-08] MEDS: METHADONE 10 MG TAB PO SCH (10:17)
--- NOTE | 2019-08-08 12:19 | P.PN ---
Subjective Progress Note Date: 08/08/19 On 08/08/2019 patient seen in follow-up on selective care unit, she is awake and alert, in no acute distress, she is at the liters of oxygen and the pulse ox of 98%, febrile, hemodynamically stable, she is on Levaquin for antibiotic coverage, oral prednisone and breathing treatments, influenza screen was n egative, blood culture has shown no growth, Legionella urinary antigen and mycoplasma IgM have been sent and results are pending at this time, lasr chest x-ray done on 08/07/2019 showed interstitial pneumonitis. Lung sounds reveal diffuse wheezes, occasional cough, with clear sputum production. She is maintaining stable oxygenation on room air, she is ambulating to the bathroom, tolerating activity fairly well, no chest pain, no hemoptysis, does complain of a headache and requesting to have her Klonopin reordered Objective - Vital Signs Vital signs: Vital Signs Temp 98.2 F 08/08/19 08:00 Pulse 79 08/08/19 08:51 Resp 18 08/08/19 08:00 BP 140/62 08/08/19 08:00 Pulse Ox 98 08/08/19 08:40 Intake & Output 08/07/19 08/08/19 08/08/19 18:59 06:59 18:59 Intake Total 1630 240 Output Total 1300 Balance 1630 -1300 240 Weight 98 kg Intake: Oral 1630 240 Output: Urine 1300 Other: Voiding Method Toilet # Voids 3 1 - Exam GENERAL EXAM: Alert, very pleasant, 43-year-old obese white female, on room air comfortable in no apparent distress. HEAD: Normocephalic/atraumatic. EYES: Normal reaction of pupils, equal size. Conjunctiva pink, sclera white. NOSE: Clear with pink turbinates. THROAT: No erythema or exudates. NECK: No masses, no JVD, no thyroid enlargement, no adenopathy. CHEST: No chest wall deformity. Symmetrical expansion. LUNGS: Equal air entry with diffuse wheezes CVS: Regular rate and rhythm, normal S1 and S2, no gallops, no murmurs, no rubs ABDOMEN: Soft, nontender. No hepatosplenomegaly, normal bowel sounds, no guarding or rigidity. EXTREMITIES: No clubbing, no edema, no cyanosis, 2+ pulses and upper and lower extremities. MUSCULOSKELETAL: Muscle strength and tone normal. SPINE: No scoliosis or deformity SKIN: No rashes CENTRAL NERVOUS SYSTEM: Alert and oriented -3. No focal deficits, tone is normal in all 4 extremities. PSYCHIATRIC: Alert and oriented -3. Appropriate affect. Intact judgment and insight. - Labs CBC & Chem 7: 08/08/19 06:03 08/08/19 06:03 Labs: Abnormal Lab Results - Last 24 Hours (Table) 08/08/19 08/08/19 Range/Units 06:03 06:03 RDW 16.8 H (11.5-15.5) % Plt Count 86 L D (150-450) k/uL Carbon Dioxide 34 H (22-30) mmol/L Glucose 73 L (74-99) mg/dL Microbiology - Last 24 Hours (Table) 08/05/19 16:40 Blood Culture - Preliminary Blood No Growth after 48 hours Assessment and Plan Plan: Assessment: 1 bilateral interstitial pneumonia, walking pneumonia most likely due to an atypical microorganism. Doubt staphylococcal infection. Doubt Covid 19 infection/pneumonia. The patient has been swabbed and the appropriate testing has been sent and is also still pending for now. Meanwhile, she has been on oral antibiotics in the patient's follow-up chest is improved and there is been also improvement in the oxygenation on today's evaluation. No signs of any hemodynamic instability. 2 acute hypoxic respiratory failure, improved currently on room air oxygen 3 history of IVDA 4 chronic anxiety 5 chronic marijuana use/raping 6 hepatitis C 7 depression 8 acute fever, recovered Plan: Continue current antibiotic coverage, send sputum for culture, patient has been afebrile, she is on room air, she is ambulating about the room, no acute distress, mildly bronchospastic, the breathing seems to be comfortable. Legionella and Mycoplasma testing results are pending,COVID 19 testing is pending. I performed a history & physical examination of the patient and discussed their management with my nurse practitioner, Julissa Knapp. I reviewed the nurse practitioner's note and agree with the documented findings and plan of care. Lung sounds are positive for diffuse wheezes throughout the lung guy. The findings and the impression was discussed with the patient. I attest to the documentation by the nurse practitioner. Time with Patient: Less than 30
[2019-08-08] MEDS: LEVOFLOXACIN 750 MG TAB PO SCH (17:38)
[2019-08-08] MEDS: FLUoxetine HCL 20 MG CAP PO SCH (20:21)
[2019-08-08] MEDS: traZODone HCL 100 MG TAB PO SCH (20:21)
[2019-08-08] MEDS: Asenapine Maleate [Saphris] 10 MG SUBLINGUAL SCH (20:22)
[2019-08-08] MEDS: IMIPRAMINE 25 MG TAB PO SCH (20:22)
[2019-08-08] MEDS: ALPRAZolam 0.25 MG TAB PO PRN (20:22)
[2019-08-09] MEDS: HEPARIN SODIUM,PORCINE 5,000 UNIT/ML 1 ML VIAL SQ SCH ×2 (02:47→10:51)
[2019-08-09] MEDS: ALPRAZolam 0.25 MG TAB PO PRN ×2 (06:41→15:45)
[2019-08-09] MEDS ORDERED: PANTOPRAZOLE 40 MG TABLET PO SCH (07:30)
[2019-08-09] MEDS: IPRATROPIUM-ALBUTEROL 3 ML NEB INHALATION SCH ×4 (09:50→15:18)
[2019-08-09] MEDS: cloNIDine HCL 0.1 MG TAB PO SCH (10:50)
[2019-08-09] MEDS: predniSONE 20 MG TAB PO SCH (10:50)
[2019-08-09] MEDS: METHADONE 10 MG TAB PO SCH (10:50)
--- NOTE | 2019-08-09 11:56 | P.PN ---
Subjective Progress Note Date: 08/09/19 On 08/08/2019 patient seen in follow-up on selective care unit, she is awake and alert, in no acute distress, she is at the liters of oxygen and the pulse ox of 98%, febrile, hemodynamically stable, she is on Levaquin for antibiotic coverage, oral prednisone and breathing treatments, influenza screen was n egative, blood culture has shown no growth, Legionella urinary antigen and mycoplasma IgM have been sent and results are pending at this time, lasr chest x-ray done on 08/07/2019 showed interstitial pneumonitis. Lung sounds reveal diffuse wheezes, occasional cough, with clear sputum production. She is maintaining stable oxygenation on room air, she is ambulating to the bathroom, tolerating activity fairly well, no chest pain, no hemoptysis, does complain of a headache and requesting to have her Klonopin reordered On 08/09/2019 patient seen in follow-up on selective care unit, still has some mild wheezing especially in the right lung, but breathing is improving, occasional productive cough with production of white colored phlegm, no significant congestion, patient has been up ambulating in the room, she was able to take a shower, tolerated activity well, antibiotic coverage in the form of Levaquin, oral prednisone, and breathing treatments, patient is on room air pulse ox of 96%, hemodynamically stable, she has been afebrile, blood culture showed no growth, today's labs have been reviewed showing white blood cell count is 6.6, hemoglobin of 11.5, platelet count is down to 86, electrolytes were unremarkable with the exception of CO2 which is a 34, no acute issues overnight, still awaiting the results of the COVID 19 testing Objective - Vital Signs Vital signs: Vital Signs Temp 98.4 F 08/09/19 04:00 Pulse 76 08/09/19 04:00 Resp 20 08/09/19 04:00 BP 162/96 08/09/19 04:00 Pulse Ox 96 08/09/19 04:00 Intake & Output 08/08/19 08/09/19 08/09/19 18:59 06:59 18:59 Intake Total 780 360 Output Total 1400 Balance 780 -1400 360 Weight 95.8 kg Intake: Oral 780 360 Output: Urine 1400 Other: Voiding Method Toilet # Voids 3 1 - Exam GENERAL EXAM: Alert, very pleasant, 43-year-old obese white female, on room air comfortable in no apparent distress. HEAD: Normocephalic/atraumatic. EYES: Normal reaction of pupils, equal size. Conjunctiva pink, sclera white. NOSE: Clear with pink turbinates. THROAT: No erythema or exudates. NECK: No masses, no JVD, no thyroid enlargement, no adenopathy. CHEST: No chest wall deformity. Symmetrical expansion. LUNGS: Equal air entry with mild wheezes in the right lung CVS: Regular rate and rhythm, normal S1 and S2, no gallops, no murmurs, no rubs ABDOMEN: Soft, nontender. No hepatosplenomegaly, normal bowel sounds, no guarding or rigidity. EXTREMITIES: No clubbing, no edema, no cyanosis, 2+ pulses and upper and lower extremities. MUSCULOSKELETAL: Muscle strength and tone normal. SPINE: No scoliosis or deformity SKIN: No rashes CENTRAL NERVOUS SYSTEM: Alert and oriented -3. No focal deficits, tone is normal in all 4 extremities. PSYCHIATRIC: Alert and oriented -3. Appropriate affect. Intact judgment and insight. - Labs CBC & Chem 7: 08/08/19 06:03 08/08/19 06:03 Labs: Abnormal Lab Results - Last 24 Hours (Table) 08/05/19 Range/Units 16:40 Mycoplasma pneumon IgM 1.18 H (<=0.90) INDEX Microbiology - Last 24 Hours (Table) 08/05/19 16:40 Blood Culture - Preliminary Blood No Growth after 72 hours Assessment and Plan Plan: Assessment: 1 bilateral interstitial pneumonia, walking pneumonia most likely due to an atypical microorganism. Doubt staphylococcal infection. Doubt Covid 19 infection/pneumonia. The patient has been swabbed and the appropriate testing has been sent and is also still pending for now. Meanwhile, she has been on oral antibiotics in the patient's follow-up chest is improved and there is been also improvement in the oxygenation on today's evaluation. No signs of any hemodynamic instability. 2 acute hypoxic respiratory failure, improved currently on room air oxygen 3 history of IVDA 4 chronic anxiety 5 chronic marijuana use/raping 6 hepatitis C 7 depression 8 acute fever, recovered Plan: Continue current antibiotic coverage, blood culture have been negative, mycoplasma IgM came back elevated, awaiting results of the urine Legionella antigen, clinically patient is stable, less bronchospastic, she is tolerating ambulation within the room, she is on room air, mild wheezing on today's exam, but no worsening dyspnea, awaiting results of the COVID 19 testing, once it comes back negative patient can be considered for discharge home to complete a course of oral antibiotics and outpatient follow-up I performed a history & physical examination of the patient and discussed their management with my nurse practitioner, Julissa Knapp. I reviewed the nurse practitioner's note and agree with the documented findings and plan of care. Lung sounds are positive for diffuse wheezes throughout the lung guy. The findings and the impression was discussed with the patient. I attest to the documentation by the nurse practitioner. Time with Patient: Less than 30
--- NOTE | 2019-08-09 14:24 | P.DS ---
Providers Date of admission: 08/05/19 18:35 Attending physician: Alison Calderon Consults: 08/06/19 13:27 Consult Physician Routine Consulting Provider: John Lewis Consult Reason/Comments: bilateral pneumonia, possible Covid-19 Do you want consulting provider notified?: Yes Primary care physician: Physician Nonstaff Hospital Course: Patient is being treated for pneumonia patient probably has atypical pneumonia, probable mycoplasma pneumoniae patient has mycoplasma IgM positive, nursing staff was unable to peripheral line patient was switched to oral levofloxacin. COVID 19 testing was ordered for possibility of which is low and patient will be on isolation for this. Her respiratory status did improve significantly patient has mild wheezing today 08/08/2019 Ration has some expiratory wheezing on the feeling much better compared to admission. Patient is on TB isolation patient chest x-ray findings are not consistent with TB no further testing is necessary for TB patient has multiple nodular lesions which is only seen in the miliary tubercle doses which is extremely rare here. 08/09/2019 Her wheezing improved. COVID-19testing is still pending patient will be discharged today with instructions for isolation at home. PHYSICAL EXAMINATION: GENERAL: The patient is alert and oriented x3, not in any acute distress. Well developed, well nourished. HEENT: Pupils are round and equally reacting to light. EOMI. No scleral icterus. No conjunctival pallor. Normocephalic, atraumatic. No pharyngeal erythema. No thyromegaly. CARDIOVASCULAR: S1 and S2 present. No murmurs, rubs, or gallops. PULMONARY: Chest is clear to auscultation, no wheezing or crackles. ABDOMEN: Soft, nontender, nondistended, normoactive bowel sounds. No palpable organomegaly. MUSCULOSKELETAL: No joint swelling or deformity. EXTREMITIES: No cyanosis, clubbing, or pedal edema. NEUROLOGICAL: Gross neurological examination did not reveal any focal deficits. SKIN: No rashes. Assessment and Plan Plan: -Probable atypical pneumonia COVID testin is pending, patient is on levofloxacin oral CAT scan was obtained is consistent for interstitial pneumonia with diffuse reticulonodular opacities there is some pulmonary nodules. Mycoplasma positive lesional is still pending -hepatitis C presently not on any medications -History of opiate abuse patient is on methadone presently -Overdose on barbiturates on admission patient only toxic spills clinically doing well at this time -COPD exacerbation: -Marijuana use: Counseling was provided -depression and other psychiatric issues patient was resumed on her home medications for these -gastroesophageal reflux disease -DVT prophylaxis with subcutaneous heparin, GI prophylaxis with Protonix Patient Condition at Discharge: Stable Plan - Discharge Summary Discharge Rx Participant: Yes New Discharge Prescriptions: New Fluticasone/Salmeterol [Advair 250-50 Diskus] 1 inhalation PO BID #1 inhaler Levofloxacin [Levaquin] 500 mg PO DAILY #5 tab Famotidine [Pepcid] 20 mg PO BID #30 tablet predniSONE 10 mg PO DAILY #30 tab Tiotropium [place] [Spiriva] 1 cap INHALATION DAILY #1 device Albuterol Inhaler [Ventolin Hfa Inhaler] 1 - 2 puff INHALATION Q6HR PRN #1 inhaler PRN Reason: Shortness Of Breath Or Wheezing Continue clonazePAM [KlonoPIN] 0.5 mg PO BID traZODone HCL 100 mg PO HS cloNIDine HCL [Catapres] 0.1 mg PO BID FLUoxetine HCL 40 mg PO HS Asenapine Maleate [Saphris] 10 mg SL HS Ibuprofen/Diphenhydramine Cit [Ibuprofen Pm Caplet] 1 tab PO HS PRN PRN Reason: SLEEP & PAIN Bismuth Subsalicylate [Pepto-Bismol] 524 mg PO QID PRN PRN Reason: UPSET STOMACH Imipramine [Tofranil] 25 - 50 mg PO HS Discontinued Naproxen Sodium [Aleve] 440 mg PO BID PRN PRN Reason: Pain Discharge Medication List Asenapine Maleate [Saphris] 10 mg SL HS 08/05/19 [History] Bismuth Subsalicylate [Pepto-Bismol] 524 mg PO QID PRN 08/05/19 [History] FLUoxetine HCL 40 mg PO HS 08/05/19 [History] Ibuprofen/Diphenhydramine Cit [Ibuprofen Pm Caplet] 1 tab PO HS PRN 08/05/19 [History] Imipramine [Tofranil] 25 - 50 mg PO HS 08/05/19 [History] cloNIDine HCL [Catapres] 0.1 mg PO BID 08/05/19 [History] clonazePAM [KlonoPIN] 0.5 mg PO BID 08/05/19 [History] traZODone HCL 100 mg PO HS 08/05/19 [History] Albuterol Inhaler [Ventolin Hfa Inhaler] 1 - 2 puff INHALATION Q6HR PRN #1 inhaler 08/09/19 [Rx] Famotidine [Pepcid] 20 mg PO BID #30 tablet 08/09/19 [Rx] Fluticasone/Salmeterol [Advair 250-50 Diskus] 1 inhalation PO BID #1 inhaler 08/09/19 [Rx] Levofloxacin [Levaquin] 500 mg PO DAILY #5 tab 08/09/19 [Rx] Tiotropium [place] [Spiriva] 1 cap INHALATION DAILY #1 device 08/09/19 [Rx] predniSONE 10 mg PO DAILY #30 tab 08/09/19 [Rx] Follow up Appointment(s)/Referral(s): Blane Ayala MD [REFERRING] - 1 Week John Lewis MD [STAFF PHYSICIAN] - 1 Week Discharge Disposition: HOME SELF-CARE
[2019-08-09 14:27] VITALS: RESP 18
[2019-08-09 14:37] VITALS: BP 126/84; PULSE 72; TEMP 98.3
== END 2019-08-09 18:31 | disposition home or self-care (01) | DRG 196 ==
LOC: EC 15:08 → 3SCARD 18:35
PROVIDERS: ADMIT Hospitalist; ATTEND Hospitalist
DX: J84.9 Interstitial pulmonary disease, unspecified (principal); J96.01 Acute respiratory failure with hypoxia; J44.1 Chronic obstructive pulmonary disease with (acute) exacerbation; B19.20 Unspecified viral hepatitis C without hepatic coma; F12.10 Cannabis abuse, uncomplicated; F17.200 Nicotine dependence, unspecified, uncomplicated; F32.9 Major depressive disorder, single episode, unspecified; F41.9 Anxiety disorder, unspecified; G40.909 Epilepsy, unspecified, not intractable, without status epilepticus; K21.9 Gastro-esophageal reflux disease without esophagitis; Z79.899 Other long term (current) drug therapy; Z87.11 Personal history of peptic ulcer disease; Z88.0 Allergy status to penicillin; Z88.2 Allergy status to sulfonamides; Z88.8 Allergy status to other drugs, medicaments and biological substances; T42.3X1A Poisoning by barbiturates, accidental (unintentional), initial encounter; T42.4X1A Poisoning by benzodiazepines, accidental (unintentional), initial encounter; Z71.51 Drug abuse counseling and surveillance of drug abuser
CPT/HCPCS: 36415; 71045; 71046; 71250; 80048; 80053; 80306; 81001; 82565; 83605; 83880; 84484; 85025; 85027; 85610; 85730; 86480; 86738; 87040; 87449; 87502; 93005; 94640; 94760; 96365; 96367; 96375; 99291